=== PATIENT | male | born 1945 | race Caucasian/White ===

== ENCOUNTER 2020-10-10 11:30 | Inpatient (IN) | payer MEDICARE, OTHER ==
[2020-10-14] MEDS ORDERED: Heparin 5,000 UNITS/ML VIAL ONE (06:37)
[2020-10-14] MEDS ORDERED: Protamine Sulfate 50 MG/5 ML VIAL ONE (06:37)
[2020-10-14] MEDS ORDERED: Fentanyl 250 MCG/5 ML VIAL ONE (06:52)
[2020-10-14] MEDS ORDERED: Midazolam HCl 2 mg/2 ml Vial ONE (07:09)
[2020-10-14] MEDS ORDERED: Heparin 10,000 UNITS/ 10 ML VIAL ONE (07:20)
[2020-10-14] MEDS ORDERED: Ondansetron PF 4 MG/2 ML Vial ONE (07:38)
[2020-10-14] MEDS ORDERED: Rocuronium Bromide 10 MG/ML (10ML VIAL) ONE (07:38)
[2020-10-14] MEDS ORDERED: Lidocaine 1% PF 5 ML VIAL ONE (07:38)
[2020-10-14] MEDS ORDERED: Dexamethasone 20 MG/5 ML VIAL ONE (07:38)
[2020-10-14] MEDS ORDERED: Glycopyrrolate 0.2 MG/ML 5 ML SYRINGE ONE (07:38)
[2020-10-14] MEDS ORDERED: PROPOFOL 200 MG/20 ML VIAL ONE (07:38)
[2020-10-14] MEDS ORDERED: Phenylephrine 10 MG/ML VIAL ONE (08:40)
[2020-10-14] MEDS ORDERED: Non-Formulary Item 1 EACH (Albuterol Sulfate [Albuterol Sulfate Hfa] 8.5 GM Hfa.Aer.Ad) IH PRN (12:22)
[2020-10-14] MEDS ORDERED: Ondansetron PF 4 MG/2 ML Vial IVP PRN (12:23)
[2020-10-14] MEDS ORDERED: HYDROcodone/Acetaminophen 5/325 mg Tablet PO PRN ×2 (12:23)
[2020-10-14] MEDS ORDERED: Acetaminophen 325 MG TAB PO PRN (12:23)
[2020-10-14] MEDS ORDERED: Promethazine HCl 25 MG/ML VIAL IM PRN ×3 (12:23→12:45)
[2020-10-14] MEDS ORDERED: Fentanyl 100 MCG/2 ML VIAL SLOW IVP PRN ×2 (12:23)
[2020-10-14] MEDS ORDERED: Promethazine HCl 25 MG/ML VIAL IVPB PRN (12:45)
[2020-10-14] MEDS ORDERED: Ondansetron HCl/PF 4 MG/2 ML Vial IVP PRN (12:45)
[2020-10-14 13:46] LABS: #Basophils 0.1 thou/uL (0.0-0.2); #Eosinphils 0.7 thou/uL (0.0-0.7); #Lymphocytes 1.1 thou/uL (1.20-3.40); #Monocytes 0.2 thou/uL (0.11-0.59); #Neutrophils 6.3 thou/uL (1.40-6.50); %Basophils 0.9 % (0.0-1.0); %Lymphocytes 13.5 % (21.0-51.0); %Monocytes 2.8 % (0.0-10.0); %Neutrophils 74.8 % (42.0-75.0); Hemoglobin 13.3 g/dL (14.0-18.0); Mean Corpuscular Hemoglobin 28.9 pg (27.0-31.0); Mean Corpuscular Volume 93.2 fL (78.0-98.0); Mean Platelet Volume 6.9 fL (7.4-10.4); Platelet Count 155 thou/uL (130-400); RBC Distribution Width 13.7 % (11.5-14.5); Red Blood Cell (RBC) Count 4.62 mill/uL (4.70-6.10); White Blood Cell (WBC) Count 8.4 thou/uL (4.8-10.8)
[2020-10-14] MEDS ORDERED: Fentanyl 100 MCG/2 ML VIAL ONE (14:04)
[2020-10-14] MEDS: Sodium Chloride 0.9% 1,000 ML IV SCH ×2 (15:15→22:53)
[2020-10-14 16:15] VITALS: BMI 18.5
[2020-10-14] MEDS: Ketorolac Tromethamine 30 MG/ML VIAL IVP SCH ×2 (16:47→18:45)
[2020-10-14] MEDS: Gabapentin 100 MG CAP PO SCH ×2 (16:51→20:59)
[2020-10-14] MEDS ORDERED: Rosuvastatin 20 MG TAB PO SCH ×3 (21:00→21:15)
[2020-10-14] MEDS ORDERED: Rosuvastatin 10 MG TAB PO SCH (21:15)
[2020-10-15] MEDS: Ketorolac Tromethamine 30 MG/ML VIAL IVP SCH ×2 (00:55→07:48)
[2020-10-15] MEDS ORDERED: Levothyroxine Sodium 75 MCG TAB PO SCH (06:00)
[2020-10-15 06:57] LABS: #Eosinphils 0.1 thou/uL (0.0-0.7); #Lymphocytes 1.3 thou/uL (1.20-3.40); #Monocytes 0.9 thou/uL (0.11-0.59); #Neutrophils 7.4 thou/uL (1.40-6.50); %Eosinophils 0.7 % (0.0-10.0); %Lymphocytes 13.6 % (21.0-51.0); %Monocytes 9.5 % (0.0-10.0); %Neutrophils 76.2 % (42.0-75.0); Hemoglobin 12.1 g/dL (14.0-18.0); Mean Corpuscular HGB CONC 32.3 g/dL (32.0-36.0); Mean Platelet Volume 7.2 fL (7.4-10.4); Platelet Count 146 thou/uL (130-400); RBC Distribution Width 13.7 % (11.5-14.5); Red Blood Cell (RBC) Count 4.04 mill/uL (4.70-6.10); White Blood Cell (WBC) Count 9.7 thou/uL (4.8-10.8)
[2020-10-15 07:19] LABS: Anion Gap 11 mmol/L (10-20); BUN (Urea Nitrogen) 32 mg/dL (8.4-25.7); Calc. Creatinine Clearance 50 mL/min (70-130); Calcium 7.8 mg/dL (7.8-10.44); Carbon Dioxide 20 mmol/L (23-31); Chloride 104 mmol/L (98-107); Glucose 115 mg/dL (83-110); Potassium 4.8 mmol/L (3.5-5.1); Sodium 130 mmol/L (136-145)
[2020-10-15] MEDS ORDERED: Ferrous Sulfate 325 MG TAB PO SCH (08:00)
[2020-10-15] MEDS: Gabapentin 100 MG CAP PO SCH ×2 (08:03→14:14)
[2020-10-15] MEDS ORDERED: Furosemide 20 MG TAB PO SCH (09:00)
[2020-10-15] MEDS ORDERED: Finasteride 5 MG TAB PO SCH (09:00)
[2020-10-15] MEDS ORDERED: Aspirin 81 mg Enteric Coated Tablet PO SCH (09:00)
[2020-10-15] MEDS ORDERED: Docusate 100 MG CAP PO SCH (09:00)
[2020-10-15] MEDS ORDERED: Cholecalciferol 1,000 UNITS (25 MCG) TAB PO SCH (09:00)
[2020-10-15] MEDS ORDERED: Aspirin Chewable 81 MG TAB PO SCH (09:00)
[2020-10-15 10:36] VITALS: BP 109/62
[2020-10-15 12:47] VITALS: TEMP 98.5
[2020-10-15] MEDS ORDERED: Rosuvastatin 20 MG TAB PO SCH (21:00)
== END 2020-10-15 17:23 | disposition home or self-care (01) | DRG 253 ==
LOC: SURG A 10-14 05:53 → EDSTATUS 10-14 11:30 → CCU 10-14 15:12
PROVIDERS: ADMIT Thoracic Surgery (Cardiothoracic Vascular Surgery); ATTEND Thoracic Surgery (Cardiothoracic Vascular Surgery)
PROC: 04CL0ZZ Extirpation of Matter from Left Femoral Artery, Open Approach (ICD-10-PCS; principal; 2020-10-14)
PROC: 04UL0KZ Supplement Left Femoral Artery with Nonautologous Tissue Substitute, Open Approach (ICD-10-PCS; 2020-10-14)
PROC: 04WY0KZ Revision of Nonautologous Tissue Substitute in Lower Artery, Open Approach (ICD-10-PCS; 2020-10-14)
DX: I70.412 Atherosclerosis of autologous vein bypass graft(s) of the extremities with intermittent claudication, left leg (principal); I50.22 Chronic systolic (congestive) heart failure; I72.3 Aneurysm of iliac artery; I25.10 Atherosclerotic heart disease of native coronary artery without angina pectoris; I48.0 Paroxysmal atrial fibrillation; I11.0 Hypertensive heart disease with heart failure; I72.0 Aneurysm of carotid artery; J45.909 Unspecified asthma, uncomplicated; Z95.810 Presence of automatic (implantable) cardiac defibrillator; Z95.1 Presence of aortocoronary bypass graft; Z79.899 Other long term (current) drug therapy; Z79.890 Hormone replacement therapy; Z79.82 Long term (current) use of aspirin
CPT/HCPCS: 36415; 80048; 85025; 86850; 86900; 86901; J0690; J1100; J1642; J1644; J1885; J2250; J2370; J2405; J2704; J2720; J3010

== ENCOUNTER 2021-10-01 09:20 | Outpatient (CLI) | payer MEDICARE ==
[2021-10-01] MEDS ORDERED: Iopamidol 370 76% 100 ML VIAL ONE (09:44)
== END 2021-10-01 09:21 | disposition home or self-care (01) ==
LOC: CT 09:20
PROVIDERS: ATTEND Family Medicine
DX: I65.23 Occlusion and stenosis of bilateral carotid arteries (principal); I72.3 Aneurysm of iliac artery; I25.10 Atherosclerotic heart disease of native coronary artery without angina pectoris; I72.0 Aneurysm of carotid artery; I73.9 Peripheral vascular disease, unspecified; I71.4 Abdominal aortic aneurysm, without rupture; I70.0 Atherosclerosis of aorta; N28.1 Cyst of kidney, acquired; K76.89 Other specified diseases of liver; K57.30 Diverticulosis of large intestine without perforation or abscess without bleeding
CPT/HCPCS: 75635; 82565; Q9967